=== PATIENT | female | born 1940 | race Caucasian/White ===

== ENCOUNTER 2019-01-11 12:34 | Outpatient (CLI) | payer MEDICARE ==
--- NOTE | 2019-01-11 14:29 | Ultrasound Report ---
Reason: ABNORMAL MAMMO LT BREAST Procedure Date: 01/11/2019 Accession Number: [id number] / [id number] Procedure: US - Breast Unilateral Limited CPT Code: FULL RESULT: EXAM: Diagnostic Dig Bilat, Breast left Unilateral Limited DATE: 01/11/2019 1:57 PM CLINICAL HISTORY: Personal history of right breast cancer. For routine screening. COMPARISON: 12/21/2017 TECHNIQUE: (B) - Bilateral CC and MLO views were obtained. PARENCHYMAL PATTERN: (D) - The breasts demonstrate heterogeneously dense fibroglandular parenchyma bilaterally. FINDINGS: Posttreatment changes right breast are stable. There are no new suspicious masses, calcifications, or areas of distortion. On the left there is a questionable developing asymmetry in the upper outer breast which for the most part dissipates on additional spot compression views. LEFT BREAST ULTRASOUND: TECHNIQUE: Real-time scanning of the left breast upper outer quadrant 6 to 7 cm from the nipple. FINDINGS: No solid or cystic mass, abnormal fluid collection, architectural distortion, or other abnormality is seen. IMPRESSION: Benign findings. BI-RADS category 2. RECOMMENDATION: (ANNUAL) - Recommend routine annual screening mammography. BI-RADS CATEGORY: (2) - Benign Findings. STANDARD QUALIFYING STATEMENTS: 1. This examination was not reviewed with the aid of Computer-Aided Detection (CAD). 2. A negative or benign imaging report should not preclude biopsy if clinically suspicious findings are present. 3. Dense breasts may obscure an underlying neoplasm. 4. This examination was reviewed with the aid of 3D breast imaging (tomosynthesis).
== END 2019-01-11 12:35 | disposition home or self-care (01) ==
LOC: DI 12:34
PROVIDERS: ATTEND Physician Assistant Medical
DX: C50.911 Malignant neoplasm of unspecified site of right female breast (principal)
CPT/HCPCS: 76642; 77066

== ENCOUNTER 2019-05-11 13:36 | Outpatient (CLI) | payer MEDICARE ==
[2019-05-11] MEDS ORDERED: IOVERSOL 320 100 ML VIAL IVP ONE ×2 (13:48→16:26)
--- NOTE | 2019-05-13 12:23 | CT Report ---
Reason: STAGE 1 BREAST CA Procedure Date: 05/11/2019 Accession Number: [id number] / [id number] Procedure: CT - CHEST W CPT Code: Final Report FULL RESULT: EXAM: CT CHEST EXAM DATE: 05/11/2019 03:00 PM. CLINICAL HISTORY: Stage 1 breast cancer. COMPARISONS: None. TECHNIQUE: Routine helical CT imaging was performed through the chest. IV contrast: 100 mL of Optiray 320. Reconstructions: Coronal and sagittal. In accordance with CT protocol optimization, one or more of the following dose reduction techniques were utilized for this exam: automated exposure control, adjustment of mA and/or KV based on patient size, or use of iterative reconstructive technique. FINDINGS: Lungs/Pleura: Postsurgical changes from partial right upper lobe resection noted. No endobronchial obstruction. No pneumothorax. No parenchymal cavities. No pleural effusions. Right biapical parenchymal scarring and pleural thickening. Peripheral left upper lobe 2 mm subpleural nodule, image 30, series 6. Right middle lobe, lingular and bibasilar/atelectasis. Mediastinum: Heart size upper normal. Coronary artery calcified plaque. Small hiatal hernia. No enlarged mediastinal or hilar lymph nodes. No enlarged inferior cervical or axillary lymph nodes are identified. The largest lymph nodes are hilar measuring in short axis dimension on the right 8 mm and on the left 6 mm. Visualized thyroid gland is unremarkable. Ascending aorta is prominent measuring 4.1 cm. No evidence of central pulmonary embolus. Bones: Degenerative changes of the thoracic spine. Superior endplates and prominent Schmorl's node is seen at T6. Degenerative changes of both shoulders. Visualized Abdomen: Calcified hepatic granulomas noted. No other hepatic lesions are seen although the entire liver is not included. Included portions of the gallbladder, adrenals and spleen are unremarkable. Pancreatic parenchymal volume loss and fatty replacement noted. Duodenal diverticulum seen by the pancreatic head. Low-attenuation lesion lateral left kidney measuring 6 mm too small to characterize also seen in the upper pole of the right kidney measuring 9 mm and medially in the right kidney measuring 6 mm, also too small to characterize. Abdominal aortic atherosclerosis. Included with the stomach and upper abdominal bowel are unremarkable. Other: Slight contour deformity of the right lateral breast may be postsurgical. IMPRESSION: 1. No enlarged thoracic lymph nodes. 2. Status post right upper lobe lung resection. 2 mm left upper lobe nodule, indeterminate. No other parenchymal lesions are identified. 3. Thoracic aortic and coronary artery atherosclerosis. Mildly prominent ascending aorta measuring 4.1 cm. RADIA
--- NOTE | 2019-05-16 13:06 | DEXA Report ---
Reason: OSTEOPOROSIS Procedure Date: 05/11/2019 Accession Number: [id number] / [id number] Procedure: DEX - Dexa Spine and/or Hip CPT Code: Final Report FULL RESULT: EXAM: Dexa Spine and/or Hip DATE: 05/11/2019 3:18 PM CLINICAL HISTORY: OSTEOPOROSIS TECHNIQUE: Dual energy x-ray absorptiometry (DXA) was performed on a [employer] System. Regions measured are the AP Spine, femoral neck, and if needed forearm. COMPARISON: None. In accordance with the International Society for Clinical Densitometry (ISCD) guidelines, data from previous exams may be reanalyzed using current recommendations and techniques. This is done to allow a more accurate basis for comparison with the current study. FINDINGS: The data for the lumbar spine is as follows: BMD (g/cm/cm) T-SCORE Z-SCORE REGION L1 0.831 -2.5 -0.5 L2 0.895 -2.5 -0.5 L3 1.049 -1.3 0.8 L4 1.155 -0.4 1.7 TOTAL 0.866 -2.5 -0.5 L3 and L4 excluded. NOTE: All evaluable vertebrae are used for classification The data for the hip is as follows: BMD (g/cm/cm) T-SCORE Z-SCORE REGION Neck 0.708 -2.4 -0.2 TOTAL 0.736 -2.2 -0.1 NOTE: The femoral neck or total proximal femur, whichever is lowest, is used for classification. IMPRESSION: THE WHO CLASSIFICATION BASED ON THE INTERNATIONAL REFERENCE STANDARD IS OSTEOPOROSIS. THE FRACTURE RISK IS HIGH. RECOMMENDATION: Patients with diagnosis of osteoporosis or osteopenia should have regular bone mineral density assessment. For those eligible for Medicare, routine testing is allowed once every 2 years. Testing frequency can be increased for patients who have rapidly progressing disease or for those who are receiving medical therapy to restore bone mass. COMMENT: World Health Organization (WHO) definitions for osteoporosis and osteopenia: NORMAL BMD: T-score at -1.0 or higher, fracture risk is low OSTEOPENIA BMD: T-score between -1.0 and -2.5, fracture risk is increased. OSTEOPOROSIS BMD: T-score at -2.5 or lower, fracture risk is high. National Osteoporosis Foundation recommends: 1. Obtain adequate dietary calcium (at least 1200 mg per day) and vitamin D (400-800 international units per day). 2. Participate, as appropriate, in regular weightbearing and muscle-strengthening exercise. 3. Avoid tobacco use and reduce alcohol and caffeine intake. 4. For more detailed information see the website at www.NOF.org.
== END 2019-05-11 13:37 | disposition home or self-care (01) ==
LOC: DI 13:36
PROVIDERS: ATTEND Internal Medicine
DX: C50.911 Malignant neoplasm of unspecified site of right female breast (principal); R91.1 Solitary pulmonary nodule; Z90.2 Acquired absence of lung [part of]; I25.10 Atherosclerotic heart disease of native coronary artery without angina pectoris
CPT/HCPCS: 71260; 77080

== ENCOUNTER 2019-10-17 08:00 | Outpatient (CLI) | payer MEDICARE ==
[2019-10-17 18:13] LABS: BASOPHILS % (AUTO) 0.8 %; EOSINOPHILS # (AUTO) 0.1 10^3/uL (0.0-0.7); EOSINOPHILS % (AUTO) 2.7 %; HGB - HEMOGLOBIN 12.7 g/dL (12.0-16.0); LYMPHOCYTES # (AUTO) 0.8 10^3/uL (1.5-3.5); MEAN CORPUSCULAR HEMOGLOBIN 31.1 pg (27.0-31.0); MEAN CORPUSCULAR HGB CONC 30.8 g/dL (32.0-36.0); MEAN PLATELET VOLUME 12.1 fL (7.9-10.8); MONOCYTES # (AUTO) 0.5 10^3/uL (0.0-1.0); MONOCYTES % (AUTO) 10.9 %; NEUTROPHILS # (AUTO) 3.3 10^3/uL (1.5-6.6); PLT - PLATELET COUNT 205 10^3/uL (130-450); RED BLOOD COUNT 4.08 10^6/uL (4.20-5.40); RED CELL DISTRIBUTION WIDTH 14.2 % (12.0-15.0); WHITE BLOOD COUNT 4.8 x10^3/uL (4.8-10.8)
[2019-10-17 18:35] LABS: ALBUMIN 4.1 g/dL (3.2-5.5); ALBUMIN/GLOBULIN RATIO 1.2 (1.0-2.2); BILIRUBIN,TOTAL 1.1 mg/dL (0.2-1.0); CALCIUM 9.6 mg/dL (8.5-10.3); CREATININE 1.1 mg/dL (0.4-1.0); TOTAL PROTEIN 7.5 g/dL (6.7-8.2)
== END 2019-10-17 23:59 | disposition home or self-care (01) ==
LOC: LAB.WCP 08:00
PROVIDERS: ATTEND Physician Assistant Medical
DX: C34.90 Malignant neoplasm of unspecified part of unspecified bronchus or lung (principal)
CPT/HCPCS: 36415; 80053; 85025

== ENCOUNTER 2020-01-04 10:07 | Outpatient (CLI) | payer MEDICARE ==
[2020-01-04] MEDS ORDERED: IOVERSOL 320 100 ML VIAL IVP ONE ×2 (10:33→18:57)
--- NOTE | 2020-01-04 11:07 | CT Report ---
PROCEDURE: CHEST W INDICATIONS: LUNG CA CONTRAST: IV CONTRAST: Optiray 320 ml: 100 PO CONTRAST: *NO PO CONTRAST TECHNIQUE: After the administration of intravenous contrast, 5 mm thick sections acquired from the pulmonary api romaine to the posterior costophrenic angles. 7 mm thick coronal MIP reformats were acquired. For radia tion dose reduction, the following was used: automated exposure control, adjustment of mA and/or kV according to patient size. COMPARISON: Prior chest CT 05/11/2019 reviewed.. FINDINGS: Image quality: Excellent. Lungs and pleura: No acute air space opacities. A peripheral 2 mm anterolateral left upper lobe nod ule seen just beneath the pleural surface on series 4 image 90 has been previously present, without c hange over time, and requires no follow-up. There is stable postoperative change on the right at the upper lobe consistent with partial right upper lobectomy No pleural effusions or pneumothorax. Centr al and peripheral airways are patent and normal in caliber. Mediastinum: Heart size is normal. No pericardial effusion. No mediastinal or hilar adenopathy by size criteria. Thoracic aorta and central pulmonary arteries are normal in size. Esophagus is edie l in caliber. No hiatal hernia. Bones and chest wall: No suspicious bony lesions. No vertebral body compression fractures. No axil jennifer or supraclavicular adenopathy by size criteria. Thyroid gland appears normal where well seen. Abdomen: Visualized upper abdominal solid organs appear normal. Upper abdominal bowel loops are nor mal in caliber. IMPRESSION: No evidence of metastatic disease or recurrent neoplasm in the operative bed this patient who is unde rgone partial right upper lobectomy. The 2 mm benign-appearing small left upper lobe anterolateral gaby ng nodule is stable over time and requires no follow-up. No new pulmonary nodule has developed and th ere is no evidence of mediastinal or hilar adenopathy or distant metastatic Reviewed by: Merlin Olivares MD on 01/04/2020 11:05 AM PDT Approved by: Merlin Olivares MD on 01/04/2020 11:05 AM PDT Station ID: [id number]
== END 2020-01-04 10:08 | disposition home or self-care (01) ==
LOC: DI 10:07
PROVIDERS: ATTEND Internal Medicine
DX: Z08 Encounter for follow-up examination after completed treatment for malignant neoplasm (principal); R91.1 Solitary pulmonary nodule; Z85.118 Personal history of other malignant neoplasm of bronchus and lung; Z90.2 Acquired absence of lung [part of]
CPT/HCPCS: 71260

== ENCOUNTER 2020-03-27 11:11 | Outpatient (CLI) | payer MEDICARE ==
--- NOTE | 2020-03-28 07:24 | Mammography Report ---
BILATERAL DIGITAL DIAGNOSTIC MAMMOGRAM 3D/2D: 03/27/2020 CLINICAL: Personal history of right breast cancer. Comparison is made to exams dated: 01/11/2019 mammogram - [facility] and 12/21/2017 mammogram - [facility]. The tissue of both breasts is heterogeneously dense. This ma y lower the sensitivity of mammography. There are benign post operative findings in the right breast. There also is a biopsy clip in the lef t breast. No significant masses, calcifications, or other findings are seen in either breast. There has been no significant interval change. IMPRESSION: BENIGN There is no mammographic evidence of malignancy. A 1 year screening mammogram is recommended. This exam was interpreted at Station ID: [id number]. NOTE: For mammograms, a report in lay terms will be sent to the patient. Approximately 15% of breast malignancies will not be visualized mammographically. In the management of a palpable breast mass, a negative mammogram must not discourage biopsy of a clinically suspicious lesion. Electronically Signed By: Edmundo rand/rubi:03/27/2020 12:01:49 ACR BI-RADS Category 2: Benign Finding(s) 3342F PARENCHYMAL PATTERN: (D) - The breast(s) demonstrate(s) heterogeneously dense fibroglandular parenchy ma. BI-RADS CATEGORY: (2) - 2 RECOMMENDATION: (ANNUAL) - Recommend routine annual screening mammography. [id number] 1 year screening LATERALITY: (B)
== END 2020-03-27 11:12 | disposition home or self-care (01) ==
LOC: DI 11:11
PROVIDERS: ATTEND Internal Medicine
DX: Z08 Encounter for follow-up examination after completed treatment for malignant neoplasm (principal); Z85.3 Personal history of malignant neoplasm of breast

== ENCOUNTER 2020-10-16 15:50 | Outpatient (CLI) | payer MEDICARE | END 2020-10-16 15:51 | disposition critical access hospital (66) | LOC: EMS 15:50 | DX: R53.1 Weakness (principal); R25.1 Tremor, unspecified; R61 Generalized hyperhidrosis | CPT/HCPCS: A0425; A0427 ==

== ENCOUNTER 2020-10-16 16:21 | Emergency (ER) | payer MEDICARE ==
[2020-10-16 16:48] LABS: BASOPHILS # (AUTO) 0.1 10^3/uL (0.0-0.1); BASOPHILS % (AUTO) 0.9 %; EOSINOPHILS % (AUTO) 0.6 %; HCT - HEMATOCRIT 37.1 % (37.0-47.0); HGB - HEMOGLOBIN 12.1 g/dL (12.0-16.0); LYMPHOCYTES # (AUTO) 0.6 10^3/uL (1.5-3.5); LYMPHOCYTES % (AUTO) 11.7 %; MEAN CORPUSCULAR HEMOGLOBIN 32.3 pg (27.0-31.0); MEAN CORPUSCULAR HGB CONC 32.6 g/dL (32.0-36.0); MEAN CORPUSCULAR VOLUME 98.9 fL (81.0-99.0); MONOCYTES # (AUTO) 0.5 10^3/uL (0.0-1.0); MONOCYTES % (AUTO) 8.5 %; NEUTROPHILS # (AUTO) 4.1 10^3/uL (1.5-6.6); NEUTROPHILS % (AUTO) 77.7 %; PLT - PLATELET COUNT 174 10^3/uL (130-450); RED BLOOD COUNT 3.75 10^6/uL (4.20-5.40); RED CELL DISTRIBUTION WIDTH 13.5 % (12.0-15.0); WHITE BLOOD COUNT 5.3 x10^3/uL (4.8-10.8)
--- NOTE | 2020-10-16 16:54 | XRAY Report ---
PROCEDURE: Chest 1 View X-Ray INDICATIONS: Chest pain TECHNIQUE: One view of the chest was acquired. COMPARISON: 01/04/2020 CT chest FINDINGS: Surgical changes and devices: Chain sutures in the right upper lobe. Lungs and pleura: No pleural effusions or pneumothorax. Lungs are clear. Mediastinum: Mediastinal contours appear normal. Heart size is normal. Bones and chest wall: No suspicious bony lesions. Overlying soft tissues appear unremarkable. IMPRESSION: No acute cardiopulmonary process demonstrated radiographically. Reviewed by: Rajat Dent MD on 10/16/2020 4:53 PM PDT Approved by: Rajat Dent MD on 10/16/2020 4:53 PM PDT Station ID: [id number]
[2020-10-16 17:05] LABS: ALBUMIN 4.1 g/dL (3.2-5.5); ALBUMIN/GLOBULIN RATIO 1.7 (1.0-2.2); BILIRUBIN,TOTAL 0.9 mg/dL (0.2-1.0); CALCIUM 9.8 mg/dL (8.5-10.3); CREATININE 1.4 mg/dL (0.4-1.0); POTASSIUM 4.4 mmol/L (3.5-5.0); TOTAL PROTEIN 6.5 g/dL (6.7-8.2)
[2020-10-16] MEDS ORDERED: SODIUM CHLORIDE 0.9% 1,000 ML IV STA ×2 (17:27→17:57)
--- NOTE | 2020-10-16 17:32 | ED Physician Documentation ---
History of Present Illness - Stated complaint Stated Complaint: WEAKNESS - Chief complaint Chief Complaint: Cardiac - Additonal information Additional information: 79-year-old female who carries a history of dementia presents to the emergency department for evaluation of a near syncopal episode. She was [place] the [place] with [place] when she began to feel somewhat faint and lightheaded. She sat down. For a moment she reported that one of her arms tingle but the son is unsure which one. She was not complaining of chest pain or shortness of air. She did not have slurred speech focal weakness. This history is provided by the son as his mom has dementia and is a very poor historian. Past medical history includes history of breast cancer Which Right breastWas treated with as well as 5 years of oral chemotherapy. Patient previously drank 1 to 2 glasses of wine or cocktail a day until about 7 to 8 years ago. She is also a former smoker quitting in her early 30s. She lives with her family here on [facility]. Review of Systems Unable to obtain: Dementia, Other (As per HPI. History obtained from son.) PD PAST MEDICAL HISTORY - Past Medical History Past Medical History: Yes Cardiovascular: None Respiratory: None Neuro: Alzhiemer's Endocrine/Autoimmune: None GI: None YARDAGE ESTIMATOR: None : None HEENT: None Psych: Anxiety Musculoskeletal: None Derm: None - Past Surgical History Past Surgical History: Yes /YARDAGE ESTIMATOR: Hysterectomy HEENT: Cataracts - Present Medications Home Medications: Ambulatory Orders Medication Instructions Recorded Confirmed Anastrozole 1 mg PO DAILY 01/10/19 04/04/20 Donepezil HCl 10 mg PO DAILY 01/10/19 04/04/20 Memantine HCl/Donepezil HCl 1 cap PO DAILY 01/10/19 04/04/20 [Namzaric 28 mg-10 mg Capsule] Multivit-Min/Folic Acid/Vit K1 1 cap PO DAILY 01/10/19 04/04/20 [Multi For Her 50 Plus Softgel] Venlafaxine [Effexor] 37.5 mg PO DAILY 01/10/19 04/04/20 - Allergies Allergies/Adverse Reactions: Allergies Allergy/AdvReac Type Severity Reaction Status Date / Time No Known Drug Allergies Allergy Verified 10/16/20 16:31 - Social History Does the pt smoke?: No Smoking Status: Never smoker Does the pt drink ETOH?: No Does the pt have substance abuse?: No - Immunizations Immunizations are current?: Yes - POLST Patient has POLST: No PD ED PE EXPANDED - General General: Alert, No acute distress, Well developed/nourished - Neck Neck: Supple w/out meningeal sx. No: Adenopathy - Cardiac Cardiac: Regular Rate, Radial strong equal, Pedal strong equal, Cap refill < 2 sec. No: Murmur Present - Respiratory Respiratory: Clear to ausultation roselia. No: Distress, Labored - Abdomen Abdomen: Normal Bowel sounds. No: Tender to palpation - Derm Derm: Normal color, Warm and dry - Extremities Extremities: Normal. No: Deformity, Tenderness - Neuro Neuro: Confused, CNII-XII intact, Cerebellar nl, Normal gait, Normal finger nose, Normal speech - GCS Eye Opening: Spontaneous Motor: Obeys Commands Verbal: Confused Total: 14 Results - Vitals Vitals: Vital Signs - 24 hr 10/16/20 10/16/20 10/16/20 16:28 17:46 18:27 Temperature 36.4 C L Heart Rate 66 Heart Rate [ 69 76 Sitting] Heart Rate [ 125 H 78 Standing] Heart Rate [ 63 63 Supine] Respiratory 15 Rate Blood Pressure 132/72 H Blood Pressure 127/77 133/71 H [Sitting] Blood Pressure 109/87 H 133/76 H [Standing] Blood Pressure 133/77 H 136/76 H [Supine] O2 Saturation 97 Oxygen O2 Source Room air - EKG (time done) 1625 Rate: Rate (enter#) (68) Rhythm: NSR [place]: Anterior hemiblock (LAFB) Intervals: Normal NE, RBBB. No: Prolonged QT (432) QRS: LVH Ischemia: Normal ST segments Compare to prior EKG: Old EKG unavailable Computer interpretation: Agree with computer - Labs Labs: Laboratory Tests 10/16/20 10/16/20 10/16/20 16:45 16:45 16:45 WBC 5.3 RBC 3.75 L Hgb 12.1 Hct 37.1 MCV 98.9 MCH 32.3 H MCHC 32.6 RDW 13.5 Plt Count 174 MPV 11.0 H Neut # (Auto) 4.1 Lymph # (Auto) 0.6 L Dillon # (Auto) 0.5 Eos # (Auto) 0.0 Baso # (Auto) 0.1 Absolute Nucleated RBC 0.00 Nucleated RBC % 0.0 Sodium 142 Potassium 4.4 Chloride 105 Carbon Dioxide 28 Anion Gap 9.0 BUN 28 H Creatinine 1.4 H Estimated GFR (MDRD) 36 L Glucose 102 H Calcium 9.8 Total Bilirubin 0.9 AST 19 ALT 17 Alkaline Phosphatase 59 Troponin I High Sens 5.9 Total Protein 6.5 L Albumin 4.1 Globulin 2.4 Albumin/Globulin Ratio 1.7 Lipase 37 - Rads (name of study) CXR Radiology: Final report received (No acute cardiopulmonary pathology.) PD MEDICAL DECISION MAKING - ED course Complexity details: reviewed results, re-evaluated patient, d/w patient ED course: 79-year-old female who carries a history no significant for breast cancer as well as dementia presents to the emergency department for evaluation of a near syncopal episode that occurred while walking the beach today. History is limited given the dementia. EKG is nonischemic but does show old right bundle branch block as well as an LAFB. High-sensitivity troponin is not elevated. Chest x-ray without acute focal pulmonary pathology. Screening labs do indicate likely a mild dehydration given the mildly elevated BUN and creatinine. Initially patient did show some orthostatic vital sign changes with an heart rate elevation to 125 when standing as well as a mildly reduced blood pressure to 109/87. Patient will be repleted with 1500 to 2 L of IV fluids and reevaluated. If not improved then she may warrant admission for observation and follow-up echo in the a.m. 1920: Patient's vital signs were reassessed after 1500 mL of IV fluid and there is no further orthostasis. Her heart rate did not change and she was able to ambulate without any difficulty complaints of shortness of air or chest pain. Patient is stable for discharge home. recommend f/u with pcp and consider outpatient electrocardiogram Departure - Departure Disposition: 01 Home, Self Care Clinical Impression: Near syncope, Dehydration Condition: Stable Record reviewed to determine appropriate education?: Yes Instructions: ED Dehydration, ED Near Syncope Unkn Follow-Up: Bertha Carpio PA-C [Primary Care Provider] - Comments: Alyse you are seen in the ER today for a near syncopal or fainting episode while on the beach. Initially your screening EKG Shows a right bundle branch block. This can be a sign that you have had a minor heart attack at some point in the past but you are not having one today. Your labs were all essentially normal with the exception of some mild dehydration. We did check your blood pressures in various positions and found that with standing you had a significant rise in your Heart rate. This could be caused by dehydration and is called orthostasis. We did give you 1.5 L of IV fluids here in the emergency department and the heart rate changes and orthostasis fully resolved. Please discuss this ED visit with your primary care provider. You may benefit from outpatient referral to a special weapons and tactics officer for an echocardiogram. I encourage you to stay well-hydrated and increase your water/fluid intake. If at any point you feel that your symptoms are worsening, you do have fainting episodes or develop chest pain or shortness of breath and please return immediately to the ER for a second look.
[2020-10-16 19:53] VITALS: BP 126/95
== END 2020-10-16 19:54 | disposition home or self-care (01) ==
LOC: EDUNIT# → SUPCPDRO 16:21 → ED 16:21
DX: R55 Syncope and collapse (principal); E86.0 Dehydration; I45.2 Bifascicular block; G30.9 Alzheimer's disease, unspecified; F02.80 Dementia in other diseases classified elsewhere, unspecified severity, without behavioral disturbance, psychotic disturbance, mood disturbance, and anxiety; Z08 Encounter for follow-up examination after completed treatment for malignant neoplasm; Z85.3 Personal history of malignant neoplasm of breast; Z87.891 Personal history of nicotine dependence
CPT/HCPCS: 36415; 80053; 83690; 84484; 85025; 93005; 96360; 99281

== ENCOUNTER 2021-03-26 13:12 | Outpatient (CLI) | payer MEDICARE ==
--- NOTE | 2021-03-27 16:06 | Mammography Report ---
BILATERAL DIGITAL SCREENING MAMMOGRAM: 03/26/2021 CLINICAL: Routine screening. Personal history of right breast cancer. Comparison is made to exams dated: 03/27/2020 mammogram, 01/11/2019 mammogram - [facility], 12/21/2017 mammogram, and 12/11/2014 ultrasound - [facility]. The tissue of saira th breasts is heterogeneously dense. This may lower the sensitivity of mammography. There are benign post operative findings in the right breast. There also is a biopsy clip in the lef t breast. No significant masses, calcifications, or other findings are seen in either breast. There has been no significant interval change. IMPRESSION: BENIGN There is no mammographic evidence of malignancy. A 1 year screening mammogram is recommended. This exam was interpreted at Station ID: [id number]. NOTE: For mammograms, a report in lay terms will be sent to the patient. Approximately 15% of breast malignancies will not be visualized mammographically. In the management of a palpable breast mass, a negative mammogram must not discourage biopsy of a clinically suspicious lesion. Electronically Signed By: Tiff dudley/rubi:03/26/2021 16:40:58 ACR BI-RADS Category 2: Benign Finding(s) 3342F PARENCHYMAL PATTERN: (D) - The breast(s) demonstrate(s) heterogeneously dense fibroglandular gretchen calero. BI-RADS CATEGORY: (2) - 2 RECOMMENDATION: (ANNUAL) - Recommend routine annual screening mammography. 20220327 1 year screening LATERALITY: (B)
== END 2021-03-26 13:13 | disposition home or self-care (01) ==
LOC: DI.N 13:12
PROVIDERS: ATTEND Internal Medicine
DX: Z12.31 Encounter for screening mammogram for malignant neoplasm of breast (principal); Z85.3 Personal history of malignant neoplasm of breast

== ENCOUNTER 2021-04-04 12:23 | Outpatient (CLI) | payer MEDICARE ==
[2021-04-04 12:46] LABS: BASOPHILS % (AUTO) 0.7 %; EOSINOPHILS # (AUTO) 0.1 10^3/uL (0.0-0.7); EOSINOPHILS % (AUTO) 1.8 %; HCT - HEMATOCRIT 38.5 % (37.0-47.0); HGB - HEMOGLOBIN 12.6 g/dL (12.0-16.0); LYMPHOCYTES # (AUTO) 0.8 10^3/uL (1.5-3.5); LYMPHOCYTES % (AUTO) 17.8 %; MEAN CORPUSCULAR HGB CONC 32.7 g/dL (32.0-36.0); MEAN CORPUSCULAR VOLUME 97.7 fL (81.0-99.0); MEAN PLATELET VOLUME 11.4 fL (7.9-10.8); MONOCYTES # (AUTO) 0.5 10^3/uL (0.0-1.0); MONOCYTES % (AUTO) 11.8 %; NEUTROPHILS % (AUTO) 67.7 %; PLT - PLATELET COUNT 189 10^3/uL (130-450); RED BLOOD COUNT 3.94 10^6/uL (4.20-5.40); RED CELL DISTRIBUTION WIDTH 13.5 % (12.0-15.0); WHITE BLOOD COUNT 4.5 x10^3/uL (4.8-10.8)
[2021-04-04 13:00] LABS: ALBUMIN 3.8 g/dL (3.2-5.5); ALBUMIN/GLOBULIN RATIO 1.2 (1.0-2.2); BILIRUBIN,TOTAL 0.5 mg/dL (0.2-1.0); CALCIUM 9.7 mg/dL (8.5-10.3); CREATININE 1.1 mg/dL (0.4-1.0)
[2021-04-04] MEDS ORDERED: iohexoL-300 100 ML VIAL ONE (15:16)
--- NOTE | 2021-04-04 15:50 | DEXA Report ---
PROCEDURE: Dexa Spine and/or Hip INDICATIONS: LUNG AND BREAST CA, OSTEOPOROSIS TECHNIQUE: Dual energy x-ray absorptiometry (DXA) was performed on a [employer] System. Regions measur ed are the AP Spine, femoral neck, and if needed forearm. COMPARISON: 05/11/2019 FINDINGS: Lumbar Spine: Bone Mineral Density 0.878 g/cm/cm,T score -2.5, unchanged Left Hip: Bone Mineral Density 0.698 g/cm/cm,T score -2.5, compared to -2.2 Left Femoral Neck: Bone Mineral Density 0.647 g/cm/cm, T score -2.8, compared to -2.4 (T score greater or equal to -1.0: NORMAL) (T score from -1.1 to -2.4: OSTEOPENIA) (T score less than or equal to -2.5 to: OSTEOPOROSIS) Impression: Unchanged osteoporosis within the lumbar spine. Progressive loss of bone mineralization within the le ft hip and left femoral neck now osteoporotic. Patients with diagnosis of osteoporosis or osteopenia should have regular bone mineral density assess ment. For those eligible for Medicare, routine testing is allowed once every 2 years. Testing frequ ency can be increased for patients who have rapidly progressing disease or for those who are receivin g medical therapy to restore bone mass. Reviewed by: Xena Waters MD on 04/04/2021 3:49 PM PST Approved by: Xena Waters MD on 04/04/2021 3:49 PM PST Station ID: [id number]
--- NOTE | 2021-04-04 16:39 | CT Report ---
PROCEDURE: CHEST W INDICATIONS: LUNG AND BREAST CA, OSTEOPOROSIS CONTRAST: IV CONTRAST: Isovue 300 ml: 100 PO CONTRAST: *NO PO CONTRAST TECHNIQUE: After the administration of intravenous contrast, 1 mm axial images were acquired from the pulmonary apices through the posterior costophrenic angles. Axial 5 mm soft tissue kernel reconstructions were performed as well as 8 mm axial MIP and coronal and sagittal 5 mm reformations. For radiation dose reduction, the following was used: automated exposure control, adjustment of mA and/or kV according to patient size. COMPARISON: None. FINDINGS: Image quality: Excellent. Lungs and pleura: No suspicious pulmonary nodules. Stable 2 mm ill-defined subpleural pulmonary nodu le, left upper lobe, current image 86/6. Remote partial pulmonary resection on the right. No acute ai r space opacities. No pleural effusions or pneumothorax. Central and peripheral airways are patent and normal in caliber. Mediastinum: Heart size is normal. No pericardial effusion. Moderate coronary artery calcification s. No mediastinal or hilar adenopathy by size criteria. Mild ascending aortic aneurysm, measuring 4.2 cm. Esophagus is normal in caliber. No hiatal hernia. Bones and chest wall: Remote right lumpectomy. No suspicious bony lesions. No vertebral body compre ssion fractures. No axillary or supraclavicular adenopathy by size criteria. The thyroid is normal in size and there are no incidental findings.. Abdomen: Visualized upper abdominal solid organs appear normal. Upper abdominal bowel loops are nor mal in caliber. IMPRESSION: 1. No evidence of metastatic disease in the chest. 2. Coronary artery disease. 3. Remote partial right pulmonary resection and right lumpectomy. CLINICAL RECOMMENDATION STATEMENTS: In patients <35 years with an ITN detected on CT, MRI, or extrathyroidal ultrasound, the Committee re commends further evaluation with dedicated thyroid ultrasound if the nodule is "e1 cm and has no susp icious imaging features, and if the patient has normal life expectancy. In patients "e35 years with an ITN detected on CT, MRI, or extrathyroidal ultrasound, the Committee r ecommends further evaluation with dedicated thyroid ultrasound if the nodule is "e1.5 cm and has no s uspicious imaging features, and if the patient has normal life expectancy. (ACR, 2014) Reviewed by: Shayne Leonard MD on 04/04/2021 4:37 PM PST Approved by: Shayne Leonard MD on 04/04/2021 4:37 PM PST Station ID: [id number]
[2021-04-04] MEDS: iohexoL-300 100 ML VIAL IVP ONE (20:20)
== END 2021-04-04 12:24 | disposition home or self-care (01) ==
LOC: DI 12:23
PROVIDERS: ATTEND Internal Medicine
DX: M81.0 Age-related osteoporosis without current pathological fracture (principal); C34.90 Malignant neoplasm of unspecified part of unspecified bronchus or lung; C50.911 Malignant neoplasm of unspecified site of right female breast
CPT/HCPCS: 36415; 71260; 77080; 80053; 85025; Q9967